=== PATIENT | male | born 1985 | race Caucasian/White ===

== ENCOUNTER 2019-04-29 10:08 | Outpatient (CLI) | payer BC, SELFPAY ==
[2019-04-29 12:42] LABS: Abs Immature Grans 0.03 k/cumm (0.0-0.09); Absolute Basophil Count 0.06 k/cumm (0.0-0.2); Absolute Eosinophil Count 0.07 k/cumm (0.0-0.7); Absolute Lymphocyte Count 1.14 k/cumm (1.2-3.4); Absolute Monocyte Count 0.45 k/cumm (0.11-0.7); Absolute Neutrophil Count 2.38 k/cumm (1.2-6.7); Basophils % 1.5; Eosinophils % 1.7; HCT 34.8 % (40.0-50.0); HGB 10.3 g/dL (13.5-17.5); Immature Grans % 0.7; Lymphocytes % 27.6; Mean Corp. HGB Concentration 29.6 g/dL (32.0-36.0); Mean Corpuscular Hemoglobin 20.7 pg (27.0-33.0); Mean Platelet Volume 11.7 fL (8.0-11.0); Monocytes % 10.9; Neutrophils % 57.6; RBC 4.97 m/cumm (4.50-6.00); RBC Distribution Width 17.5 % (11.8-14.1); White Blood Cell Count 4.13 k/cumm (4.4-10.8)
[2019-04-29 12:57] LABS: ALT 146 U/L (12-78); AST 150 U/L (15-37); Albumin 4.3 g/dL (3.4-5.0); Alkaline Phosphatase 123 U/L (46-116); Anion Gap 15.6 mmol/L (3-11); BUN 10 mg/dL (7-18); Bilirubin, Total 0.3 mg/dL (0.2-1.0); CO2 24.4 mmol/L (21.0-32.0); CREATININE 0.77 mg/dL (0.70-1.30); Calcium 8.6 mg/dL (8.5-10.1); Chloride 102 mmol/L (98-107); Glucose 112 mg/dL (70-100); Potassium 3.4 mmol/L (3.5-5.1); Sodium 142 mmol/L (136-145); Total Protein 7.3 g/dL (6.4-8.2)
[2019-04-29 14:50] LABS: Diff Comment RBC Morph Reviewed; Hypochromasia 1+; Microcytosis 2+; Platelet Count 110 x1000/uL (130-400)
== END 2019-04-29 10:28 ==
PROVIDERS: PCP Family Medicine; Visit Provider Family Medicine
DX: F10.10 Alcohol abuse, uncomplicated (principal)
CPT/HCPCS: 36415; 80053; 85025

== ENCOUNTER 2025-04-14 10:28 | Emergency (ER) | payer BC, SELFPAY ==
[2025-04-14 10:33] VITALS: BP 155/96; PULSE 117; RESP 20; TEMP 36.8; O2SAT 98
[2025-04-14 10:36] VITALS: BP 155/96; PULSE 117; RESP 20; TEMP 36.8; O2SAT 98
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
[2025-04-14 11:05] LABS: BE (Venous) 0 mmol/L (-2-3); HCO3 (Venous) 25 mmol/L (23-28); O2 Sat (Venous) 81 %; TCO2 (Venous) 24 mmol/L (24-29); pCO2 (Venous) 40 mmHg (41-51); pH (Venous) 7.39 (7.31-7.41); pO2 (Venous) 53 mmHg
[2025-04-14 11:07] LABS: Abs Immature Grans 0.01 10^3/uL (0.0-0.06); Absolute Basophil Count 0.05 10^3/uL (0.0-0.2); Absolute Eosinophil Count 0.05 10^3/uL (0.0-0.7); Absolute Lymphocyte Count 1.14 10^3/uL (1.2-3.4); Absolute Monocyte Count 0.37 10^3/uL (0.1-0.8); Absolute Neutrophil Count 1.52 10^3/uL (1.2-6.7); Basophils % 1.6 %; Eosinophils % 1.6 %; HCT 28.4 % (40.0-50.0); HGB 7.5 g/dL (13.5-17.5); Immature Grans % 0.3 %; Lymphocytes % 36.3 %; MCHC 26.4 % (32.0-36.0); MCV 61 fL (80-95); MPV 9.4 fL (8.0-11.0); Monocytes % 11.8 %; Neutrophils % 48.4 %; Platelet Count 164 10^3/uL (130-400); RBC 4.68 10^6/uL (4.36-5.78); RDW 17.5 % (11.8-14.1); RDW-SD 36.7 fL; WBC 3.14 10^3/uL (4.4-10.8)
[2025-04-14 11:09] LABS: Lactate 2.8 mmol/L (<or=2.0)
[2025-04-14] MEDS: Diph,Pertuss(Acell),Tet Vac/Pf 0.5 ML SYR IM (11:12)
[2025-04-14] MEDS: diazePAM 10 MG/2 ML SYR 5 MG IVP (11:12)
[2025-04-14] MEDS: Lactated Ringers 1,000 ML 1000 ML IV (11:14)
[2025-04-14] MEDS: Normal Saline - Diluent 50 ML VIAL IJ (11:25)
[2025-04-14] MEDS: Omnipaque 350 MG/ML 100 ML BTL IJ (11:26)
[2025-04-14 11:34] LABS: ALT 108 U/L (16-63); AST 95 U/L (15-37); Albumin 4.7 g/dL (3.4-5.0); Alkaline Phosphatase 86 U/L (46-116); Anion Gap 16.1 mmol/L (3-11); BUN 10 mg/dL (7-18); Bilirubin, Total 0.7 mg/dL (0.2-1.0); CO2 25.9 mmol/L (21.0-32.0); Calcium 8.5 mg/dL (8.5-10.1); Chloride 103 mmol/L (98-107); ETHANOL BLOOD 252.2 mg/dL (<10); Estimated GFR 99.41 (mL/min/1.73m2); Glucose 102 mg/dL (74-106); Lipase 37 U/L (<78); Potassium 3.3 mmol/L (3.5-5.1); Sodium 145 mmol/L (136-145); Total Protein 7.8 g/dL (6.4-8.2)
[2025-04-14 11:36] LABS: Diff Comment RBC Morph Reviewed
[2025-04-14 11:37] LABS: Hypochromasia 2+; Microcytosis 2+
[2025-04-14 11:40] VITALS: BP 142/83; PULSE 108; RESP 18; O2SAT 99
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
== END 2025-04-14 12:57 | disposition home or self-care (01) ==
LOC: ER 12:57
PROVIDERS: Emergency Provider Student in an Organized Health Care Education/Training Program
DX: R10.32 Left lower quadrant pain (principal); S30.1XXA Contusion of abdominal wall, initial encounter; S90.512A Abrasion, left ankle, initial encounter; S90.511A Abrasion, right ankle, initial encounter; S50.311A Abrasion of right elbow, initial encounter; S50.312A Abrasion of left elbow, initial encounter; S60.811A Abrasion of right wrist, initial encounter; S60.812A Abrasion of left wrist, initial encounter; F17.210 Nicotine dependence, cigarettes, uncomplicated; Y90.8 Blood alcohol level of 240 mg/100 ml or more; V18.4XXA Pedal cycle driver injured in noncollision transport accident in traffic accident, initial encounter; Y92.488 Other paved roadways as the place of occurrence of the external cause; D64.9 Anemia, unspecified; F10.120 Alcohol abuse with intoxication, uncomplicated
CPT/HCPCS: 74177; 80053; 82805; 83690; 90471; 90715; 96374; 99285; 70450; 71260; 72125; 80320; 83605; 85025; J3360; J3490